=== PATIENT | female | born 1970 | race Caucasian/White ===

== ENCOUNTER 2020-02-03 20:15 | Emergency (ER) | payer OTHER, BC ==
[~2020-02-03] VITALS: Ht 170.2 cm; Wt 69.0 kg
[~2020-02-03 20:15] MED LIST: AMOXICILLIN500 MG PO; AZO95 MG PO; BACTRIM 400-801 EACH; CIPRO500 MG PO; CIPROFLOXACIN250 MG PO; MACROBID 100 M100 MG PO; NITROFURANTOIN100 MG PO
--- NOTE | 2020-02-04 11:01 | EKG ---
[facility] [address] [facility] [place], [place] [address] Signed Normal sinus rhythm Incomplete right bundle branch block Left posterior fascicular block Nonspecific ST abnormality Abnormal ECG No previous ECGs available Confirmed by JAN FREEMAN MD ([id number]) on 02/04/2020 11:01:16 AM Electronically Signed By: JAN FREEMAN MD 02/04/20 1101 PATIENT NAME: PRAJAPATIBENITO Electrocardiogram DATE OF : 70 PHYSICIAN: JAN FREEMAN MD REPORT #: [id number] REPORT IS CONFIDENTIAL AND NOT TO BE RELEASED WITHOUT AUTHORIZATION
== END 2020-02-03 22:06 | disposition home or self-care (01) ==
LOC: ED 20:15
DX: R07.89 Other chest pain (principal)
CPT/HCPCS: 71045; 80053; 83735; 84484; 85025; 93005; 93010; 99285-25